=== PATIENT | female | born 1980 | race Caucasian/White ===

== ENCOUNTER 2021-09-17 18:26 | Emergency (ER) | payer OTHER ==
[2021-09-17 20:52] LABS: HEMOGLOBIN 15.3 gm/dl (12.3-15.3); RED BLOOD COUNT 5.71 M/UL (4.00-5.10); WHITE BLOOD COUNT 11.6 K/UL (4.5-11.0)
[2021-09-17 21:13] LABS: BUN/CREATININE RATIO 11 (0-10)
[2021-09-17] MEDS ORDERED: ZOFRAN ODT 4 MG4 MG PO (23:02)
[2021-09-17] MEDS ORDERED: LISINOPRIL10 MG PO (23:02)
== END 2021-09-17 23:29 | disposition home or self-care (01) ==
LOC: ER1 18:26
PROVIDERS: Family Medicine
DX: K52.9 Noninfective gastroenteritis and colitis, unspecified (principal); I10 Essential (primary) hypertension; F17.200 Nicotine dependence, unspecified, uncomplicated
CPT/HCPCS: 80053; 81001; 83690; 84703; 85025; 96374; 96375; 99284; J2270; J2405; J7030; Q9967